=== PATIENT | female | born 1945 | race Caucasian/White ===

== ENCOUNTER 2020-12-06 17:23 | Inpatient (IN) | payer MEDICARE, BC, SELFPAY ==
--- NOTE | ~2020-12-06 | XR_ITS ---
EXAMINATION: XR hip RT min 2V DATE: 12/07/2020 15:53 INDICATION: Total right hip arthroplasty. Postop. TECHNIQUE: 2 views of right hip were obtained. COMPARISON: Right hip radiographs 12/06/2020 FINDINGS: There is a total right hip arthroplasty in near-anatomic alignment. No fracture. IMPRESSION: 1. Total right hip arthroplasty in near-anatomic alignment. Reviewed, dictated and finalized at location B.
--- NOTE | ~2020-12-06 | XR_ITS ---
EXAMINATION: XR knee RT 3V EXAM DATE: 12/06/2020 18:06 INDICATION: Fall, right hip and knee pain. Initial encounter. TECHNIQUE: Three projections of the right knee. There is no prior study for comparison. FINDINGS: No evidence osteochondral defect or joint body in the right knee joint. There are no acut e fractures or dislocations identified. There is no subcutaneous gas. There is small joint effusion . There are no radiopaque foreign bodies. 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 IMPRESSION: Small right knee joint effusion. Mild osteoarthritis. Reviewed, dictated and finalized at location A.
--- NOTE | ~2020-12-06 | US_ITS ---
EXAMINATION: US venous doppler LE EXAM DATE: 12/09/2020 15:57 INDICATION: Postoperative fever. Right hip surgery. TECHNIQUE: Multiple grayscale, color flow and Doppler images of the lower extremity deep venous syste ms bilaterally were obtained and reviewed. There is no prior study for comparison. FINDINGS: Right side: The right common femoral, femoral and profunda veins demonstrate normal color flow, respi ratory variation, augmentation and compressibility. Compressibility, color flow confirmed within the right popliteal, posterior tibial, peroneal, and greater saphenous veins. Left side: The left common femoral, femoral and profunda veins demonstrate normal color flow, respira tory variation, augmentation and compressibility. Compressibility, color flow confirmed within the l eft popliteal, posterior tibial, peroneal, and greater saphenous veins. IMPRESSION: 1. No lower extremity deep venous thrombosis bilaterally. Reviewed, dictated and finalized at location A.
--- NOTE | ~2020-12-06 | XR_ITS ---
XR chest 2V DATE: 12/09/2020 09:05 INDICATION: Postoperative fever TECHNIQUE: AP and lateral views COMPARISON: 12/06/2020 AP chest FINDINGS: Heart size is within normal limits. Aortic arch calcification. No hilar or mediastinal enla rgement. No pulmonary infiltrate or consolidation, pleural effusion or pulmonary vascular congestion or pneumo thorax. Prominent loss of height and anterior wedging of L1 vertebral body IMPRESSION: No active cardiopulmonary disease L1 fracture deformity Reviewed, dictated and finalized at location A.
--- NOTE | ~2020-12-06 | XR_ITS ---
EXAMINATION: XR hip RT 2V w AP pelvis EXAM DATE: 12/06/2020 18:07 INDICATION: Fall, right hip pain. TECHNIQUE: Right hip frontal, crosstable lateral projections for interpretation. Frontal projection p lula. There is no prior study for comparison. FINDINGS: There is acute closed posttraumatic right-sided subcapital femoral neck fracture. There is moderate bilateral hip primary osteoarthritis. Sacrum, sacroiliac joints, sacral arcuate lines are in tact. Pelvic ring appears intact. IMPRESSION: 1. Acute right hip subcapital femoral neck fracture. Reviewed, dictated and finalized at location A.
--- NOTE | ~2020-12-06 | XR_ITS ---
EXAMINATION: XR chest 1V EXAM DATE: 12/06/2020 18:07 INDICATION: Fall, shortness of breath. TECHNIQUE: Portable AP frontal chest x-ray was obtained. There is no prior study for comparison. FINDINGS: Moderate hyperinflation. The lungs are clear. There are no pleural effusions. The cardiom ediastinal silhouette is within normal limits. There is no pneumothorax suspected. Moderate loss of the L1 vertebral body height, likely chronic assuming patient does not have back pain. IMPRESSION: 1. Moderate loss of the L1 vertebral body height, likely chronic assuming patient does not have back pain. 2. No acute cardiopulmonary findings. Reviewed, dictated and finalized at location A. IMPRESSION: 1. Moderate loss of the L1 vertebral body height, likely chronic assuming mayra ent does not have back pain. 2. No acute cardiopulmonary findings.
[2020-12-06 17:25] VITALS: BP 172/66; PULSE 100; RESP 16; TEMP 36.7; O2SAT 98
--- NOTE | 2020-12-06 18:20 | ECG_ITS ---
Measurements Intervals [place] Rate: 102 P: 79 ID: [id number] QRS: 73 QRSD: 84 T: 29 QT: 309 QTc: 403 Interpretive Statements SINUS TACHYCARDIA BASELINE ARTIFACT- II, AVR, AVL BORDERLINE ECG Electronically Signed On 12-06-2020 19:51:07 CDT by Alexi Aldana D.O.
--- NOTE | 2020-12-06 18:43 | ED.LOWEXIN ---
HPI - Extremity Injury (Lower) General Chief Complaint: Extremity Injury, Lower Stated Complaint: FALL, R HIP R KNEE PAIN Time Seen by Provider: 12/06/20 18:12 Source: patient Mode of arrival: wheelchair Limitations: no limitations History of Present Illness HPI Narrative: Patient is a 75 year old female who presents by personal vehicle complaining of right hip pain. Patient reports she was outside watering [place], slipped and fell on concrete, injuring right hip. She reports calling son who helped her to vehicle. She reports pain when right leg is moved. She denies all other complaints at this time. complaint: hip injury Related Data Allergies Allergy/AdvReac Type Severity Reaction Status Date / Time No Known Allergies Allergy Mild Verified 10/22/20 09:18 Review of Systems Review of Systems: Narrative: CONSTITUTIONAL: Denies fever, chills, or sweats. EYES: Denies visual changes, redness, or discharge. ENT: Denies rhinorrhea, congestion, sore throat, or otalgia. CARDIOVASCULAR: Denies chest pain, palpitations, or edema. RESPIRATORY: Denies cough or dyspnea. GASTROINTESTINAL: Denies abdominal pain, nausea, vomiting, or diarrhea. GENITOURINARY: Denies dysuria or hematuria. SKIN: Denies rash or itching. MUSCULOSKELETAL: Reports right hip pain NEUROLOGIC: Denies headache, numbness, dizziness, or weakness. PSYCHIATRIC: Denies anxiety or depression. [facility] Past Medical History Medical History HLD (hyperlipidemia) Surgical History Surgical History Status post D&C Family History Family History Sibling Family history of lung cancer Social History Social History Smoking status: Never smoker Second hand tobacco smoke exposure: No Alcohol intake: never Substance use: never Substance use type: does not use Gender identity (if verbalized by the patient): Female Comments At the time of signature, I have reviewed and agree with nursing past medical, surgical, social, and family history unless otherwise noted. Please see nursing chart for further information. There is no relevant family history pertinent to the presenting complaint. Exam Narrative: Exam Narrative: GENERAL: Well-appearing, well-nourished, and in no acute distress. HEAD: Normocephalic, atraumatic. EYES: EOMI. No redness or drainage. Conjunctiva are normal. ENT: Mucous membranes pink and moist. NECK: AROM. Supple. No lymphadenopathy. CHEST: No respiratory distress. HEART: Regular rate and rhythm. No murmur appreciated. Normal peripheral pulses. EXTREMITIES: Slight shortening of right leg, no rotation. SKIN: Warm, dry, no rash. NEURO: No focal deficits. Alert and oriented x3. Gait steady. PSYCH: Normal affect. No signs of depression or anxiety. Course Consultations Consultation #1: Spoke with Dr. Doyle who asks that patient be NPO at midnight as he will attempt to schedule surgical repair for tomorrow. Vital Signs Vital signs: Vital Signs Temperature 36.7 C 12/06/20 17:25 Pulse Rate 100 12/06/20 17:25 Respiratory Rate 16 12/06/20 17:25 Blood Pressure 172/66 H 12/06/20 17:25 Pulse Oximetry 98 12/06/20 17:25 Temperature 36.6 C 12/06/20 19:25 Pulse Rate 97 12/06/20 19:25 Respiratory Rate 20 12/06/20 19:25 Blood Pressure 185/79 H 12/06/20 19:25 Pulse Oximetry 95 12/06/20 19:25 Reviewed-patient is informed that they may have pre-hypertension or hypertension based on a blood pressure reading. I recommend the patient call the primary care provider listed on their discharge instructions or a physician of their choice this week to arrange follow-up for further evaluation of possible pre-hypertension or hypertension. MDM - Extremity Injury (Lower) MDM Narrative Medical decision syed
[2020-12-06 18:45] VITALS: BP 150/65; PULSE 81; RESP 17; O2SAT 97
[2020-12-06 18:49] LABS: Basophils Absolute Auto 0.1 K/mm3 (0.0-0.1); Basophils Percent Auto 0.6 % (0.2-1.2); Eosinophils Percent Auto 0.3 % (0-4.4); Hematocrit 34.4 % (37.0-47.0); Hemoglobin 11.3 g/dL (12.0-15.0); Immature Granulocyte Absolute 0.08 K/mm3 (0.00-0.031); Immature Granulocyte Percent A 0.9 % (0-0.5); Lymphocytes Absolute Auto 2.05 K/mm3 (0.9-3.2); Lymphocytes Percent Auto 22.7 % (18.3-44.2); Mean Corpuscular HGB Conc 32.8 g/dl (32-36); Mean Corpuscular Hemoglobin 27.4 pg (26-34); Mean Corpuscular Volume 83.5 fl (80-100); Mean Platelet Volume 9.3 fl (7.4-10.4); Monocytes Absolute Auto 0.8 K/mm3 (0.1-0.6); Monocytes Percent Auto 8.6 % (2.6-8.5); Neutrophils Percent Auto 66.9 % (45.5-73.1); Platelet Count Result 355 k/mm3 (150-375); Red Blood Count 4.12 M/mm3 (4.2-5.4); Red Cell Distribution Width 13.5 % (11.5-14.5)
[2020-12-06 18:57] LABS: Prothrombin Time 13.3 Seconds (11.1-14.7)
[2020-12-06 19:00] LABS: Alanine Aminotransferase 16 U/L (4-35); Albumin Level 4.3 g/dL (3.5-5.1); Alkaline Phosphatase 56 U/L (38-126); Anion Gap 6 mmol/L (8-16); Aspartate Amino Transferase 36 U/L (14-36); Bilirubin,Total 0.2 mg/dL (0.2-1.3); Blood Urea Nitrogen 13 mg/dL (7-17); Calcium 9.3 mg/dL (8.4-10.2); Carbon Dioxide 27 mmol/L (22-30); Chloride 96 mmol/L (98-107); Estimated CRCL calculation 43 ml/min; Estimated Glomerular Filt Rate > 60; Glucose 149 mg/dL (65-105); Sodium 129 mmol/L (137-145)
[2020-12-06 19:25] VITALS: BP 185/79; PULSE 97; RESP 20; TEMP 36.6; O2SAT 95
[2020-12-06] MEDS: SODIUM CHLORIDE 0.9% IV 1,000 ML 999 ML IV CONT (19:30)
[2020-12-06 19:53] LABS: Add Urine Microscopic? YES; Appearance Urine Clear (Clear); Bilirubin Urine Negative (Negative); Blood Urine Negative (Negative); Color Urine Yellow (Yellow); Glucose Urine UA Negative (Negative); Ketones Urine 1+ mg/dL (Negative); Leukocyte Esterase Ur Negative LEU/UL (Negative); Mucus Urine Rare /lpf; Nitrate Urine Negative (Negative); Protein Urine Negative (Negative); RBC Urine 0-2 /hpf (0-2); Urobilinogen Urine Negative mg/dL (<2.0); WBC Urine 0-3 /hpf
--- NOTE | 2020-12-06 20:15 | PM.IMHP ---
H&P: HPI History of Present Illness Date/Time: 12/06/20 20:15 Chief Complaint: Right hip and knee pain after fall. Narrative: This is a pleasant 75-year-old female with type 2 diabetes mellitus, hypertension, and hyperlipidemia who presented to the emergency department earlier today via private vehicle from home for evaluation of right hip pain and knee pain after fall. Not long prior to arrival she was outside watering her plants and when she came inside she turned the corner quickly and thinks she tripped on the threshold, causing her to fall down onto her right side. She had immediate pain in her right hip in somewhat in her right knee and was unable to get herself up. Her son and [id number] were able to help her to her feet and today carried her to the car and brought her to the hospital where she was found to have a right hip fracture. She has a fairly constant ache in the right hip, worse with movement. She also reports mild aching in her right knee though has full range of motion without a whole lot of pain at that site. She denies head trauma and loss of consciousness in the fall. No paresthesias, skin color, or temperature changes distal to the fracture. Review of Systems Review of Systems: Narrative: Twelve systems were reviewed with pertinent positives and negatives as per HPI. No fever, chills, or sweats. No recent cold or flu symptoms. She is fully vaccinated for COVID-19. No cardiac or pulmonary disease. She denies exertional chest pain shortness of breath. She believes her diabetes is fairly well controlled however admits that over the last 6 months or so her glucose has been running a bit higher, noting that it was about 140 fasting this morning. Most recent hemoglobin A1c was 7.4%. No blurry vision, polydipsia, or polyuria. No history of venous thromboembolism. No syncope or near syncope. She denies back pain. Except as documented, all other systems were reviewed and are negative. [facility] Past Medical History Medical History (Updated 12/06/20 @ 23:22 by Lulu Prado PA-C) Essential hypertension History of melanoma Hyperlipidemia Type 2 diabetes mellitus without complication, without long-term current use of insulin Surgical History Surgical History (Updated 12/06/20 @ 23:18 by Lulu Prado PA-C) History of dilation and curettage History of melanoma excision Excised from the back. Family History Family History (Updated 12/06/20 @ 23:19 by Lulu Prado PA-C) Sibling Family history of lung cancer Sibling Takotsubo cardiomyopathy Son Hypertension Daughter Diabetes mellitus Social History Social History (Updated 12/06/20 @ 23:20 by Lulu Prado PA-C) Social History: Surrogate decision maker: Maldonado Villalba, frank. Code status: Full code. Smoking status: Never smoker Second hand tobacco smoke exposure: No Alcohol intake: never Substance use: never Substance use type: does not use Additional living arrangements comments: The patient lives in her own home in [place]. Her son and [id number] live with her as well as there to cats. Additional occupation/education comments: Retired. Gender identity (if verbalized by the patient): Female Spiritual care concerns: No Meds Home Medications and Allergies Home Medications Medication Instructions Recorded Confirmed Type sitagliptin 100 mg tablet 100 mg PO DAILY #90 tablet 07/31/20 12/06/20 Rx lisinopril 2.5 mg PO DAILY 12/06/20 12/06/20 History multivit with min-folic acid 1 tablet PO DAILY 12/06/20 12/06/20 History [Adult One Daily Multivitamin] Allergies Allergy/AdvReac Type Severity Reaction Status Date / Time adhesive tape Allergy Rash Verified 12/06/20 22:09 Vital Signs Vital Signs - 24 hr 12/06/20 17:25 12/06/20 18:45 12/06/20 19:25 Temperature 98.0 F 97.8 F Pulse Rate 100 81 97 Respiratory Rate 16 17 20 Blood Pressure 172/66 H 150/65 H 185/79 H Pulse Oxi
[2020-12-06 20:20] VITALS: BP 165/72; PULSE 93; RESP 24; O2SAT 97
--- NOTE | 2020-12-06 21:22 | ADMGEN ---
This patient, Rhonda Villalba, was admitted to Medical Room 241-. Patient/family oriented to hospital policies and general routines including ID bracelet, bed and alarms, visiting hours, pain management, procedures, bathroom and other care routines, personal items, smoking policy, room service/diet, and visiting hours. Information on how to activate the Rapid Response Team has been discussed. Patient/Family are encouraged to report perceived risks to care and to ask questions if they do not understand what they are told or what they should do.
[2020-12-06 21:37] VITALS: BP 152/72; PULSE 103; RESP 18; TEMP 36.2; O2SAT 97; BMI 22.8
[2020-12-06] MEDS: HYDROcodone/acetaminophen (*CRX) 5-325 MG TABLET 1 TAB PO (22:09)
[2020-12-06 23:55] VITALS: O2SAT 97
[2020-12-07] VITALS (14 sets, daily range): BP systolic 120–149; BP diastolic 50–63; PULSE 63–88; RESP 12–20; TEMP 36.6–37.6; O2SAT 91–100
[2020-12-07 00:09] LABS: Hemoglobin A1C 7.7 % (<5.7)
[2020-12-07 00:39] LABS: Thyroid Stimulating Hormone Reflex 0.323 uIU/mL (0.465-4.68)
[2020-12-07 00:47] LABS: Creatinine Urine 15.2 mg/dL
[2020-12-07 00:58] LABS: Sodium Urine Random 97 meq/L
[2020-12-07] MEDS: SODIUM CHLORIDE 0.9% IV 1,000 ML 100 ML IV CONT (01:13)
[2020-12-07 01:46] LABS: Free T4 Free Thyroxine Reflex 1.38 ng/dL (0.78-2.19)
[2020-12-07 02:47] LABS: Total Triiodothyronine (T3) 1.15 NG/ML (0.97-1.69)
[2020-12-07 06:12] LABS: Hematocrit 32.3 % (37.0-47.0); Hemoglobin 10.8 g/dL (12.0-15.0); Mean Corpuscular HGB Conc 33.4 g/dl (32-36); Mean Corpuscular Hemoglobin 28.2 pg (26-34); Mean Corpuscular Volume 84.3 fl (80-100); Platelet Count Result 333 k/mm3 (150-375); Red Blood Count 3.83 M/mm3 (4.2-5.4); Red Cell Distribution Width 13.6 % (11.5-14.5); White Blood Count 8.9 K/mm3 (4.5-10.0)
[2020-12-07 06:19] LABS: Anion Gap 1 mmol/L (8-16); Blood Urea Nitrogen 10 mg/dL (7-17); Calcium 8.5 mg/dL (8.4-10.2); Carbon Dioxide 28 mmol/L (22-30); Chloride 101 mmol/L (98-107); Estimated CRCL calculation 49 ml/min; Estimated Glomerular Filt Rate > 60; Glucose 132 mg/dL (65-105); Magnesium 1.8 mg/dL (1.6-2.3); Potassium 3.9 mmol/L (3.4-5.0); Sodium 130 mmol/L (137-145)
[2020-12-07] MEDS: HYDROcodone/acetaminophen (*CRX) 5-325 MG TABLET 1 TAB PO (06:40)
--- NOTE | 2020-12-07 09:41 | PM.CNOR ---
Assessment and Plan Assessment and plan (1) Closed subcapital fracture of right femur: Code(s): S72.011A - Unspecified intracapsular fracture of right femur, initial encounter for closed fracture Status: Acute Assessment and Plan: Active female with displaced femoral neck fracture. Will benefit from total hip arthroplasty. We discussed the risks, benefits, and alternatives to surgery. History of Present Illness HPI Consult date: 12/07/20 Chief complaint: Right Hip Fracture Narrative: Patient complains of acute hip pain. Fell from standing height. Admitted through the emergency room for definitive management. No previous hip pain. Comfortable at rest. No numbness, tingling, or other associated symptoms. Very active community ambulator. Review of Systems Review of Systems: Narrative: Denies loss of consciousness. All systems reviewed & are unremarkable except as noted in HPI and below PMFSH Past Medical History Medical History Essential hypertension History of melanoma Hyperlipidemia Type 2 diabetes mellitus without complication, without long-term current use of insulin Surgical History Surgical History History of dilation and curettage History of melanoma excision Excised from the back. Family History Family History Sibling Family history of lung cancer Sibling Takotsubo cardiomyopathy Son Hypertension Daughter Diabetes mellitus Social History Social History Social History: Surrogate decision maker: Maldonado Vilallba, son. Code status: Full code. Smoking status: Never smoker Second hand tobacco smoke exposure: No Alcohol intake: never Substance use: never Substance use type: does not use Additional living arrangements comments: The patient lives in her own home in [place] Her son and [id number] live with her as well as there to cats. Additional occupation/education comments: Retired. Gender identity (if verbalized by the patient): Female Spiritual care concerns: No Meds Home Medications and Allergies Home Medications Medication Instructions Recorded Confirmed Type sitagliptin 100 mg tablet 100 mg PO DAILY #90 tablet 07/31/20 12/06/20 Rx lisinopril 2.5 mg PO DAILY 12/06/20 12/06/20 History multivit with min-folic acid 1 tablet PO DAILY 12/06/20 12/06/20 History [Adult One Daily Multivitamin] Allergies Allergy/AdvReac Type Severity Reaction Status Date / Time adhesive tape Allergy Rash Verified 12/06/20 22:09 Vital Signs Vital Signs - 24 hr 12/06/20 17:25 12/06/20 18:45 12/06/20 19:25 Temperature 36.7 C 36.6 C Pulse Rate 100 81 97 Respiratory Rate 16 17 20 Blood Pressure 172/66 H 150/65 H 185/79 H Pulse Oximetry 98 97 95 12/06/20 20:20 12/06/20 21:37 12/06/20 23:55 Temperature 36.2 C L Pulse Rate 93 103 H Respiratory Rate 24 H 18 Blood Pressure 165/72 H 152/72 H Pulse Oximetry 97 97 97 12/07/20 06:00 Temperature 36.8 C Pulse Rate 81 Respiratory Rate 16 Blood Pressure 142/54 H Pulse Oximetry 98 Exam Narrative: Exam Narrative: Lower extremity shortened and externally rotated. Const: General: no acute distress Eyes: General: appearance normal, both eyes and all related structures Resp: Effort & Inspection: normal respiratory effort GI: GI Palp: Yes Soft to palpation and No Guarding due to palpation present (GI) Urinary Catheter: Urinary Catheter: patent and draining and urine clear Skin: General skin exam: no rashes or lesions noted Neuro: Speech: normal speech Other: Wiggles toes well. Capillary refill brisk. Distal light touch sensation intact. Dorsalis pedis pulse palpable. Extrem: Other: No edema. Psych: Mental Status: mental status grossly nor
--- NOTE | 2020-12-07 09:50 | WPDHPUPDATE1 ---
History and Physical Update Update Date/Time: 12/07/20 09:50 History and Physical has been reviewed, including an updated exam of the patient. There are NO changes in the patient's condition. Risks, benefits, and alternatives have been discussed and questions answered. Patient agrees to proceed with procedure.
[2020-12-07 11:39] LABS: Glucose Point of Care 147 (65-105)
--- NOTE | 2020-12-07 11:40 | PC.NURSE ---
pt to surgery via bed, confirmed we have correct phone number for son
[2020-12-07 11:41] LABS: Glucose Point of Care 122 (65-105)
[2020-12-07] MEDS: LACTATED RINGERS 1,000 ML 30 ML IV CONT ×2 (12:10→15:35)
[2020-12-07] MEDS: TRANEXAMIC ACID 1,000MG/ISO100 1,000 MG/100 ML BAG 200 MG IVPB (12:22)
--- NOTE | 2020-12-07 12:34 | WPDANESEPPF ---
Anes - Initial Pre Proc Eval Procedure: Operation Date: 12/07/20 13:00 Proposed Procedures p Right Total Hip Arthroplasty - Kael Doyle MD Date/Time: 12/07/20 12:34 Surgeon: Nidhi Manuel PA-C Pre Op Diagnosis: Right Hip Fracture Patient Data Age: 75 Gender: F Height: 1.52 m Weight: 53.1 kg Last Vital Signs Temp 37.4 C 12/07/20 12:14 Pulse 88 12/07/20 12:14 Resp 20 12/07/20 12:14 BP 137/63 12/07/20 12:14 Pulse Ox 96 12/07/20 12:14 Allergies Allergy/AdvReac Type Severity Reaction Status Date / Time adhesive tape Allergy Rash Verified 12/06/20 22:09 Home Medications Medication Instructions Recorded Confirmed Type sitagliptin 100 mg tablet 100 mg PO DAILY #90 tablet 07/31/20 12/06/20 Rx lisinopril 2.5 mg PO DAILY 12/06/20 12/06/20 History multivit with min-folic acid 1 tablet PO DAILY 12/06/20 12/06/20 History [Adult One Daily Multivitamin] Laboratory Tests 12/06/20 12/06/20 12/06/20 18:43 18:43 18:43 WBC 9.0 K/mm3 K/mm3 (4.5-10.0) RBC 4.12 M/mm3 L M/mm3 (4.2-5.4) Hgb 11.3 g/dL L g/dL (12.0-15.0) Hct 34.4 % L % (37.0-47.0) MCV 83.5 fl fl (80-100) MCH 27.4 pg pg (26-34) MCHC 32.8 g/dl g/dl (32-36) RDW 13.5 % % (11.5-14.5) Plt Count 355 k/mm3 k/mm3 (150-375) MPV 9.3 fl fl (7.4-10.4) Immature Gran % (Auto) 0.9 % H % (0-0.5) Neut % (Auto) 66.9 % % (45.5-73.1) Lymph % (Auto) 22.7 % % (18.3-44.2) [place] % (Auto) 8.6 % H % (2.6-8.5) Eos % (Auto) 0.3 % % (0-4.4) Baso % (Auto) 0.6 % % (0.2-1.2) Lymph # (Auto) 2.05 K/mm3 K/mm3 (0.9-3.2) [place] # (Auto) 0.8 K/mm3 H K/mm3 (0.1-0.6) Eos # (Auto) 0.0 K/mm3 K/mm3 (0-0.3) Baso # (Auto) 0.1 K/mm3 K/mm3 (0.0-0.1) Abs Immat Gran (auto) 0.08 K/mm3 H K/mm3 (0.00-0.031) Absolute Neuts (auto) 6.0 K/mm3 K/mm3 (1.3-6.7) Absolute Nucleated RBC 0.0 K/mm3 K/mm3 (0.0-0.012) Nucleated RBC % 0.0 % % (0.0-0.2) PT INR APTT Cancelled Sodium 129 mmol/L L mmol/L (137-145) Potassium 4.0 mmol/L mmol/L (3.4-5.0) Chloride 96 mmol/L L mmol/L (98-107) Carbon Dioxide 27 mmol/L mmol/L (22-30) Anion Gap 6 mmol/L L mmol/L (8-16) BUN 13 mg/dL mg/dL (7-17) Creatinine 0.70 mg/dL mg/dL (0.7-1.0) Estim Creat Clear Calc 43 ml/min ml/min Estimated GFR > 60 (59 - ) Glucose 149 mg/dL H mg/dL (65-105) POC Capillary Glucose Hemoglobin A1c Serum Osmolality Calcium 9.3 mg/dL mg/dL (8.4-10.2) Magnesium Total Bilirubin 0.2 mg/dL mg/dL (0.2-1.3) AST 36 U/L U/L (14-36) ALT 16 U/L U/L (4-35) Alkaline Phosphatase 56 U/L U/L (38-126) Total Protein 7.0 g/dL g/dL (6.3-8.2) Albumin 4.3 g/dL g/dL (3.5-5.1) TSH (Reflex) Free T4 Total T3 Urine Color Urine Appearance Urine pH Ur Specific [place] Urine Protein Urine Glucose (UA) Urine Ketones Ur Blood (Man) Urine Nitrate Urine Bilirubin Urine Urobilinogen Leukocyte Esterase Rfl Urine RBC Urine WBC Urine Mucus Urine Osmolality Ur Random Sodium Urine Creatinine Blood Type Antibody Screen 12/06/20 12/06/20 12/06/20 18:43 18:43 18:43 WBC RBC Hgb Hct MCV MCH MCHC RDW Plt Count MP
[2020-12-07] MEDS: ceFAZolin 2 GM/D5W 50 ML 2 GM/50 ML BAG IVPB (13:21)
--- NOTE | 2020-12-07 13:58 | PM.IMPN ---
Progress Note: A&P Assessment and Plan (1) Closed subcapital fracture of right femur: Code(s): S72.011A - Unspecified intracapsular fracture of right femur, initial encounter for closed fracture Status: Acute Assessment and Plan: Secondary to mechanical fall. Hip x-ray showed subcapital femoral neck fracture Surgical repair today with Dr. Doyle. Appreciate orthopedic surgery consultation. Supportive care Analgesics available as needed for pain Weight bearing and DVT prophylaxis per orthopedic surgery (2) Hyponatremia: Code(s): E87.1 - Hypo-osmolality and hyponatremia Status: Acute Assessment and Plan: Very mild. Sodium 130 today. Review of prior labs suggests chronic hyponatremia. Monitor BMP (3) Type 2 diabetes mellitus without complication, without long-term current use of insulin: Code(s): E11.9 - Type 2 diabetes mellitus without complications Status: Acute Assessment and Plan: A1c is 7.7. Blood sugars are well controlled. Accu-Cheks, sliding scale insulin, hypoglycemic protocol Monitor glucose trends (4) Essential hypertension: Code(s): I10 - Essential (primary) hypertension Status: Acute Assessment and Plan: Blood pressure reviewed and is elevated above target, likely secondary to pain. Seems to be improving. Last BP 137/63. Lisinopril on hold as she is NPO. Resume tomorrow. (5) Abnormal TSH: Code(s): R79.89 - Other specified abnormal findings of blood chemistry Status: Acute Assessment and Plan: TSH is low with normal T4 and T3. Recommend repeat reflex TSH in 4-6 weeks as an outpatient. Follow-up with PCP Subjective Date/time seen: 12/07/20 13:58 Interval history: Date of service: 12/07/2020 Rhonda Villalba is a 75-year-old female with a history of hypertension, hyperlipidemia, and type 2 diabetes mellitus who is seen in follow-up for right hip fracture. She is seen in postop recovery after undergoing surgical hip repair. She is very drowsy and unable to contribute to history. Review of Systems Review of Systems: ROS unobtainable: Yes unobtainable due to medical condition Exam Narrative: Exam Narrative: Ms. Villalba is a well-nourished 75-year-old female who is lying supine on stretcher. She is in NARD. Neuro: Drowsy, does not respond to questions, she is able to follow simple commands no focal neuro deficits noted HEENMT: normocephalic, atraumatic, EOMI, sclerae anicteric Respiratory: clear to auscultation anteriorly, nonlabored breathing Cardio: regular rate, regular rhythm with S1-S2 Extremities: Right hip is covered with bandage and ice pack. Bilateral lower extremities with no edema, erythema, cyanosis, clubbing, or tenderness to palpation, DP pulses 2+ bilaterally Skin: no rashes or lesions, warm and dry Objective Data Vital Signs Vital Signs: Vital Signs - 24 hr 12/06/20 17:25 12/06/20 18:45 12/06/20 19:25 Temperature 98.0 F 97.8 F Pulse Rate 100 81 97 Respiratory Rate 16 17 20 Blood Pressure 172/66 H 150/65 H 185/79 H Pulse Oximetry 98 97 95 12/06/20 20:20 12/06/20 21:37 12/06/20 23:55 Temperature 97.1 F L Pulse Rate 93 103 H Respiratory Rate 24 H 18 Blood Pressure 165/72 H 152/72 H Pulse Oximetry 97 97 97 12/07/20 06:00 12/07/20 12:14 Temperature 98.2 F 99.4 F Pulse Rate 81 88 Respiratory Rate 16 20 Blood Pressure 142/54 H 137/63 Pulse Oximetry 98 96 Intake/Output Intake/Output: Intake & Output 12/04/20 12/05/20 12/06/20 12/07/20 23:59 23:59 23:59 23:59 Intake Total 1000 200 Output Total 1250 Balance 1000 -1050 Meds/Results Medications: Active Medications Generic Name Dose Route Start Last Admin Trade Name Freq PRN Reason Stop Dose Admin Hydrocodone Bitart/Acetaminophen 1 tab 12/06/20 19:20 12/07/20 06:40 Hydrocodone/Acetaminophen (*Crx) 5-325 Mg Tablet PO 1 tab Q4H PRN Administ
[2020-12-07] MEDS: fentaNYL CITRATE INJ (*CRX) 100 MCG/2 ML VIAL 25 MCG IV PUSH ×2 (15:48→16:06)
--- NOTE | 2020-12-07 16:02 | PM.PROC ---
Procedure Note - Detailed Date of procedure: 12/07/20 Pre-op diagnosis: Right Hip Fracture Post-op diagnosis: same Procedure performed: Total hip arthroplasty, right hip. Implants: The Accolade II hip stem, 127 degree size 4 , was utilized with excellent press-fit. The 46 mm ADM acetabular component was impacted with excellent press-fit stability. The +0 , 28 mm Biolox ceramic femoral head was utilized. [facility] Surgeon: Kael Doyle MD Sheriff: Rosmery Griffin PA-C Estimated blood loss (mL): 300 Drains: No Complications: None Condition: stable Disposition: PACU Findings: Physician surgical assistant certified, Rosmery Griffin PA-C, required for surgery; including patient positioning, draping, tissue retraction, maintaining instrument position, dislocation and reduction of the hip joint. Wound closure, and dressing placement. OPERATIVE DETAILS: The patient was given preoperative antibiotics. A general anesthetic was administered. The patient was carefully placed in the lateral decubitus position on the PEG board. The shoulders and hips were carefully positioned for component and leg length positioning reference. The hip was prepped and draped in the usual sterile fashion. A longitudinal incision was created over the posterior aspect of the greater trochanter. Careful dissection was brought down through the deep fascia with electrocautery. A minimally invasive optimized posterior approach to the hip was performed. The short external rotators and capsule were taken down in an L-shaped capsulotomy. The tissue was tagged for later repair using number 2 high strength suture. The femoral neck was measured and taken in situ. The femoral head was removed. The acetabulum was carefully exposed. The inferior capsule was released. The labrum was resected. The acetabulum was sequentially reamed to one over the intended cup size. The cup was impacted into position with excellent press-fit. Typical anatomic landmarks, including the bony contact points as well as the inferior transverse acetabular ligament were used to confirm cup positioning with preoperative templating. Attention was turned to the femur, which was carefully exposed. The hip was reamed and then broached sequentially. Excellent press-fit was obtained with the broach. The hip was trialed. Measurements were utilized, including the lesser trochanter as well as the center of the femoral head and the tip of the trochanter, and excellent assessment of the offset and leg lengths were confirmed. The real component was impacted into position. Trialing confirmed appropriate leg length and offset with soft tissue balancing as well apparent feel of the leg, both at the knee and the heel. Soft tissues were assessed using the the iliotibial band. Reduction of the posterior capsule and external rotators were also used as a secondary assessment. The hip was copiously irrigated with pulsatile lavage antibiotic solution periodically throughout the procedure. The real components were then assembled and reduced. The hip was stable throughout typical maneuvers, including extension, external rotation to 70 degrees, the position of sleep as well as flexion to 90 degrees with internal rotation past 45 degrees. The shake test confirmed stability without impingement. Osteophytes were removed as necessary. The short external rotators and capsule were repaired back to the posterior trochanter through drill holes. The deep fascia was repaired with running number 2 Quill suture, followed by 0 Stratafix suture and 2-0 Stratafix suture in the dermis. Steri-Strips were placed on the skin, followed by a sterile silver occlusive dressing. There were no complications. Meticulous hemostasis was maintained with the AquaMantys device. The patient was brought to the recovery room in stable condition. There were no complications.
[2020-12-07 16:12] LABS: Glucose Point of Care 180 (65-105)
--- NOTE | 2020-12-07 17:01 | PC.NURSE ---
pt returned from surgery, doing well, reviewed post op orders
[2020-12-07] MEDS: lisinopriL 2.5 MG TABLET PO (19:15)
[2020-12-07] MEDS: THERAPEUTIC MULTIVITAMINS/MINERALS TAB (*BKC) 1 TABLET PO (19:15)
[2020-12-07 21:51] LABS: Glucose Point of Care 209 (65-105)
[2020-12-08] VITALS (8 sets, daily range): BP systolic 110–129; BP diastolic 46–66; PULSE 86–102; RESP 14–18; TEMP 36.7–38.1; O2SAT 94–99
[2020-12-08 05:52] LABS: Basophils Percent Auto 0.2 % (0.2-1.2); Hematocrit 27.1 % (37.0-47.0); Hemoglobin 9.3 g/dL (12.0-15.0); Immature Granulocyte Absolute 0.14 K/mm3 (0.00-0.031); Immature Granulocyte Percent A 0.8 % (0-0.5); Lymphocytes Absolute Auto 1.78 K/mm3 (0.9-3.2); Lymphocytes Percent Auto 9.6 % (18.3-44.2); Mean Corpuscular HGB Conc 34.3 g/dl (32-36); Mean Corpuscular Hemoglobin 28.1 pg (26-34); Mean Corpuscular Volume 81.9 fl (80-100); Mean Platelet Volume 9.8 fl (7.4-10.4); Monocytes Absolute Auto 1.7 K/mm3 (0.1-0.6); Monocytes Percent Auto 8.9 % (2.6-8.5); Neutrophils Percent Auto 80.5 % (45.5-73.1); Platelet Count Result 286 k/mm3 (150-375); Red Blood Count 3.31 M/mm3 (4.2-5.4); Red Cell Distribution Width 13.7 % (11.5-14.5); White Blood Count 18.6 K/mm3 (4.5-10.0)
[2020-12-08 06:13] LABS: Anion Gap 5 mmol/L (8-16); Blood Urea Nitrogen 12 mg/dL (7-17); Calcium 8.6 mg/dL (8.4-10.2); Carbon Dioxide 24 mmol/L (22-30); Chloride 96 mmol/L (98-107); Estimated CRCL calculation 43 ml/min; Estimated Glomerular Filt Rate > 60; Glucose 139 mg/dL (65-105); Potassium 4.2 mmol/L (3.4-5.0); Sodium 125 mmol/L (137-145)
[2020-12-08 07:42] LABS: Glucose Point of Care 135 (65-105)
[2020-12-08 10:45] LABS: Glucose Point of Care 190 (65-105)
[2020-12-08] MEDS: THERAPEUTIC MULTIVITAMINS/MINERALS TAB (*BKC) 1 TABLET PO (10:48)
[2020-12-08] MEDS: lisinopriL 2.5 MG TABLET PO (10:49)
[2020-12-08] MEDS: DOCUSATE SODIUM 100 MG CAPSULE PO ×2 (10:49→18:03)
--- NOTE | 2020-12-08 10:55 | PM.IMPN ---
Progress Note: A&P Assessment and Plan (1) Closed subcapital fracture of right femur: Code(s): S72.011A - Unspecified intracapsular fracture of right femur, initial encounter for closed fracture Status: Acute Assessment and Plan: Secondary to mechanical fall. Hip x-ray showed subcapital femoral neck fracture. She is status post right total hip arthroplasty. She tolerated the procedure well. Surgical repair today with Dr. Doyle. Appreciate orthopedic surgery consultation. Supportive care Analgesics available as needed for pain Weight bearing and DVT prophylaxis per orthopedic surgery PT/OT eval appreciated Leukocytosis noted postoperatively likely reactive, will monitor CBC (2) Hyponatremia: Code(s): E87.1 - Hypo-osmolality and hyponatremia Status: Acute Assessment and Plan: Review of prior labs suggests chronic hyponatremia. Sodium is lower at 125 today. She is euvolemic. Suspect SIADH Repeat sodium this afternoon to establish trend Monitor BMP (3) Type 2 diabetes mellitus without complication, without long-term current use of insulin: Code(s): E11.9 - Type 2 diabetes mellitus without complications Status: Acute Assessment and Plan: A1c is 7.7. Blood sugars are reasonable. Accu-Cheks, sliding scale insulin, hypoglycemic protocol Continue sitagliptin Monitor glucose trends (4) Essential hypertension: Code(s): I10 - Essential (primary) hypertension Status: Acute Assessment and Plan: Blood pressure reviewed and is well controlled. Last BP 120/48. Continue low-dose lisinopril (5) Abnormal TSH: Code(s): R79.89 - Other specified abnormal findings of blood chemistry Status: Acute Assessment and Plan: TSH is low with normal T4 and T3. Recommend repeat reflex TSH in 4-6 weeks as an outpatient. Follow-up with PCP Subjective Date/time seen: 12/08/20 10:55 Interval history: Date of service: 12/08/2020 Rhonda Villalba is a 75-year-old female with a history of hypertension, hyperlipidemia, and type 2 diabetes mellitus who is seen in follow-up for right hip fracture. She is s/p surgical repair on 12/07/2020. She tolerated the procedure well and her pain is well controlled at this time. She reports discomfort that she rates as 4/10. She got up and walked around with therapy today and tolerated this well. She had a bowel movement this morning. Her Banerjee was removed and she is urinating without difficulty. She denies shortness breath, cough, or chest pain. No nausea, vomiting, fever, or chills. Tolerating her diet well. Denies muscle aches or cramps. Review of Systems Review of Systems: All systems reviewed & are unremarkable except as noted in HPI and below Exam Narrative: Exam Narrative: Ms. Villalba is a well-nourished 75-year-old female who is lying supine on stretcher. She is in NARD. Neuro: Awake, alert and oriented x4. Speech clear. No focal neuro deficits noted. HEENMT: normocephalic, atraumatic, EOMI, sclerae anicteric, moist oral mucosa Neck: Supple, no lymphadenopathy Respiratory: clear to auscultation bilaterally, nonlabored breathing Cardio: regular rate, regular rhythm with S1-S2 Abdomen: Nondistended, normoactive bowel sounds, soft, nontender to palpation Extremities: Right hip is covered with ice pack and dressing is c/d/i. Nontender to palpation. Bilateral lower extremities with no edema, erythema, cyanosis, clubbing, or tenderness to palpation, DP pulses 2+ bilaterally Skin: no rashes or lesions, warm and dry Psych: Pleasant, appropriate mood and affect, judgment and insight intact Objective Data Vital Signs Vital Signs: Vital Signs - 24 hr 12/07/20 12:14 12/07/20 15:35 12/07/20 15:50 Temperature 99.4 F 99.3 F Pulse Rate 88 86 67 Respiratory Rate 20 16 16 Blood Pressure 137/63 146/56 H 133/53 L Pulse Oximetry 96 99 100 12/07/20 16:05 11/24
--- NOTE | 2020-12-08 10:55 | WPDANESPN ---
Anes - Prog Note Post-Op Date/Time: 12/08/20 10:55 Cardiovascular status: normal Respiratory status: normal Airway patency: baseline Mental status: baseline Post-Op hydration status: normal Vital Signs: Last Vital Signs Temp 37.2 C 12/08/20 10:00 Pulse 88 12/08/20 10:00 Resp 14 12/08/20 10:00 BP 110/46 L 12/08/20 10:00 Pulse Ox 99 12/08/20 10:00 Pain Score (VAS): 2/10 I/O: Intake & Output 12/07/20 12/08/20 12/08/20 23:59 07:59 15:59 Intake Total 490 600 240 Output Total 90 325 Balance 400 275 240 Laboratory Tests 12/08/20 05:14 12/08/20 05:14 12/07/20 12/07/20 12/07/20 08:02 11:34 16:00 WBC RBC Hgb Hct MCV MCH MCHC RDW Plt Count MPV Immature Gran % (Auto) Neut % (Auto) Lymph % (Auto) [place] % (Auto) Eos % (Auto) Baso % (Auto) Lymph # (Auto) [place] # (Auto) Eos # (Auto) Baso # (Auto) Abs Immat Gran (auto) Absolute Neuts (auto) Absolute Nucleated RBC Nucleated RBC % Sodium Potassium Chloride Carbon Dioxide Anion Gap BUN Creatinine Estim Creat Clear Calc Estimated GFR Glucose POC Capillary Glucose 147 H 122 H 180 H Calcium 12/07/20 12/08/20 12/08/20 21:25 05:14 05:14 WBC 18.6 H RBC 3.31 L Hgb 9.3 L Hct 27.1 L MCV 81.9 MCH 28.1 MCHC 34.3 RDW 13.7 Plt Count 286 MPV 9.8 Immature Gran % (Auto) 0.8 H Neut % (Auto) 80.5 H Lymph % (Auto) 9.6 L [place] % (Auto) 8.9 H Eos % (Auto) 0.0 Baso % (Auto) 0.2 Lymph # (Auto) 1.78 [place] # (Auto) 1.7 H Eos # (Auto) 0.0 Baso # (Auto) 0.0 Abs Immat Gran (auto) 0.14 H Absolute Neuts (auto) 15.0 H Absolute Nucleated RBC 0.0 Nucleated RBC % 0.0 Sodium 125 L Potassium 4.2 Chloride 96 L Carbon Dioxide 24 Anion Gap 5 L BUN 12 Creatinine 0.70 Estim Creat Clear Calc 43 Estimated GFR > 60 Glucose 139 H POC Capillary Glucose 209 H Calcium 8.6 12/08/20 12/08/20 07:20 10:42 WBC RBC Hgb Hct MCV MCH MCHC RDW Plt Count MPV Immature Gran % (Auto) Neut % (Auto) Lymph % (Auto) [place] % (Auto) Eos % (Auto) Baso % (Auto) Lymph # (Auto) [place] # (Auto) Eos # (Auto) Baso # (Auto) Abs Immat Gran (auto) Absolute Neuts (auto) Absolute Nucleated RBC Nucleated RBC % Sodium Potassium Chloride Carbon Dioxide Anion Gap BUN Creatinine Estim Creat Clear Calc Estimated GFR Glucose POC Capillary Glucose 135 H 190 H Calcium Post-procedural complaints: none Patient Feedback: Patient satisfied with anesthetic care.
--- NOTE | 2020-12-08 11:44 | PM.PNORT ---
Progress Note: A&P Assessment and Plan (1) Closed subcapital fracture of right femur: Code(s): S72.011A - Unspecified intracapsular fracture of right femur, initial encounter for closed fracture Status: Acute (2) Status post total hip replacement, right: Code(s): Z96.641 - Presence of right artificial hip joint Status: Acute Assessment and Plan: Doing well on postoperative day 1. May weight bear as tolerated. She wishes to go home. This may be reasonable. She has adequate arrangements at home and assistance. She is in good physical condition. We will see how she does with therapy. Consider home discharge tomorrow. Subjective Subjective Date/Time Seen: 12/08/20 11:44 Interval history: status post Total hip arthroplasty for femoral neck fracture. doing well postoperative day 1. Pain well controlled Mobilizing well with therapy Exam Narrative: Exam Narrative: Wound healing well without drainage No hematoma, no deformity No warmth or erythema Calves nontender, neurovascular status intact, wiggles toes Objective Data Vital Signs Vital Signs: Vital Signs - 24 hr 12/07/20 12:14 12/07/20 15:35 12/07/20 15:50 Temperature 37.4 C 37.4 C Pulse Rate 88 86 67 Respiratory Rate 20 16 16 Blood Pressure 137/63 146/56 H 133/53 L Pulse Oximetry 96 99 100 12/07/20 16:05 12/07/20 16:20 12/07/20 16:35 Temperature 37.6 C Pulse Rate 65 63 70 Respiratory Rate 14 14 12 Blood Pressure 133/60 122/50 L 122/51 L Pulse Oximetry 100 100 92 12/07/20 16:44 12/07/20 17:00 12/07/20 17:15 Temperature 36.8 C 36.9 C Pulse Rate 71 78 85 Respiratory Rate 14 18 18 Blood Pressure 122/51 L 138/57 L 140/56 L Pulse Oximetry 91 95 95 12/07/20 17:45 12/07/20 18:45 12/07/20 20:05 Temperature 36.8 C 36.8 C 36.6 C Pulse Rate 82 82 78 Respiratory Rate 18 18 16 Blood Pressure 149/51 H 126/52 L 120/55 L Pulse Oximetry 93 95 96 12/07/20 22:23 12/08/20 00:23 12/08/20 05:21 Temperature 36.7 C 37.5 C Pulse Rate 86 99 Respiratory Rate 16 16 Blood Pressure 129/51 L 120/48 L Pulse Oximetry 95 99 94 12/08/20 10:00 Temperature 37.2 C Pulse Rate 88 Respiratory Rate 14 Blood Pressure 110/46 L Pulse Oximetry 99 Intake/Output Intake/Output: Intake & Output 12/05/20 12/06/20 12/07/20 12/08/20 23:59 23:59 23:59 23:59 Intake Total 1000 740 840 Output Total 1790 325 Balance 1000 -1050 515 Meds/Results Medications: Active Medications Generic Name Dose Route Start Last Admin Trade Name Freq PRN Reason Stop Dose Admin Hydrocodone Bitart/Acetaminophen 1 tab 12/06/20 19:20 12/07/20 06:40 Hydrocodone/Acetaminophen (*Crx) 5-325 Mg Tablet PO 1 tab Q4H PRN Administration Pain Rated 4-6 Aspirin 81 mg 12/08/20 17:00 Aspirin 81 Mg Enteric Tablet PO BID MAMADOU Dextrose 12.5 gm 12/06/20 23:25 Dextrose 50% 25 Gm/50 Ml Syringe IV PUSH PRN PRN Hypoglycemia Protocol Docusate Sodium 100 mg 12/07/20 17:00 12/08/20 10:49 Docusate Sodium 100 Mg Capsule PO 100 mg BID MAMADOU Administration Glucagon 1 mg 12/06/20 23:25 Glucagon For Inj 1 Mg Vial IM PRN PRN Hypoglycemia Protocol Glucose 15 gm 12/06/20 23:25 Glucose Oral Gel 15 Gm Of Glucse In 37.5 Gm Tube PO PRN PRN Hypoglycemia Protocol Dextrose 1,000 mls @ 100 mls/hr 12/06/20 23:25 Dextrose 5% 1,000 Ml IVPB PRN PRN Hypoglycemia Protocol Cefazolin Sodium 1 gm in 50 mls @ 100 mls/hr 12/07/20 22:00 12/08/20 06:16 Ancef 1 Gm/D5w 50 Ml Pm IVPB 12/08/20 14:29 Infused Q8HR [facility] Infusion Insulin Aspart 2 - 5 units 12/07/20 08:00 12/08/20 10:54 Insulin Aspart (*Bkc) 100 Units/Ml SUB-Q Not Given TIDWM [facility] Protocol Lisinopril 2.5 mg 12/07/20 09:00 12/08/20 10:49 Lisinopril 2.5 Mg Tablet PO 2.5 mg DAILY MAMADOU Administration Magnesium Hydroxide 30 ml 12/07/20 16:44 Magnesium Hydroxide Susp 30 Ml
[2020-12-08 12:27] LABS: Sodium 121 mmol/L (137-145)
[2020-12-08 17:45] LABS: Glucose Point of Care 196 (65-105)
[2020-12-08] MEDS: ASPIRIN 81 MG ENTERIC TABLET PO (18:03)
[2020-12-08] MEDS: SODIUM CHLORIDE 1 GM TABLET PO (18:03)
[2020-12-08 21:01] LABS: Glucose Point of Care 240 (65-105)
[2020-12-08] MEDS: ACETAMINOPHEN 325 MG TABLET 650 MG PO (22:03)
[2020-12-09 00:14] VITALS: BP 113/42; PULSE 86; RESP 18; TEMP 37.6; O2SAT 95
[2020-12-09 06:07] LABS: Hematocrit 29.9 % (37.0-47.0); Hemoglobin 9.9 g/dL (12.0-15.0); Mean Corpuscular HGB Conc 33.1 g/dl (32-36); Mean Corpuscular Volume 84.5 fl (80-100); Mean Platelet Volume 9.6 fl (7.4-10.4); Platelet Count Result 261 k/mm3 (150-375); Red Blood Count 3.54 M/mm3 (4.2-5.4); Red Cell Distribution Width 13.8 % (11.5-14.5); White Blood Count 15.3 K/mm3 (4.5-10.0)
[2020-12-09 06:22] LABS: Anion Gap 4 mmol/L (8-16); Blood Urea Nitrogen 9 mg/dL (7-17); Calcium 8.6 mg/dL (8.4-10.2); Carbon Dioxide 27 mmol/L (22-30); Chloride 97 mmol/L (98-107); Estimated CRCL calculation 43 ml/min; Estimated Glomerular Filt Rate > 60; Glucose 150 mg/dL (65-105); Sodium 128 mmol/L (137-145)
[2020-12-09 08:12] LABS: Glucose Point of Care 154 (65-105)
[2020-12-09] MEDS: THERAPEUTIC MULTIVITAMINS/MINERALS TAB (*BKC) 1 TABLET PO (09:18)
[2020-12-09] MEDS: lisinopriL 2.5 MG TABLET PO (09:18)
[2020-12-09] MEDS: DOCUSATE SODIUM 100 MG CAPSULE PO (09:18)
[2020-12-09] MEDS: ASPIRIN 81 MG ENTERIC TABLET PO (09:18)
[2020-12-09 10:00] VITALS: BP 117/72; PULSE 104; RESP 16; TEMP 37.4; O2SAT 96
[2020-12-09 11:48] LABS: Glucose Point of Care 199 (65-105)
--- NOTE | 2020-12-09 12:03 | PM.PNORT ---
Progress Note: A&P Assessment and Plan (1) Closed subcapital fracture of right femur: Code(s): S72.011A - Unspecified intracapsular fracture of right femur, initial encounter for closed fracture Status: Acute (2) Status post total hip replacement, right: Code(s): Z96.641 - Presence of right artificial hip joint Status: Acute Assessment and Plan: Doing well on postoperative day 2 Total hip arthroplasty right. She wishes to go home. This is reasonable. She has adequate arrangements at home and assistance. She is in good physical condition. Aware of low grade temp. No signs of infection. She is doing well with PT. DVT prophylaxis: ASA 81 mg BID for 2 weeks Pain medication: Percocet (sent to pharmacy) PT: WBAT with walker for 3 weeks. I had a lengthy discussion with the patient. Reviewed post operative expectations and exercises. Reviewed wound care postoperatively. Patient shows good understanding. Okay for discharge. She will call the office to make a 3 week appointment for follow up. Subjective Subjective Date/Time Seen: 12/09/20 12:03 Status post Total hip arthroplasty for femoral neck fracture. doing well postoperative day 2. Pain well controlled Mobilizing well with therapy Aware of low grade fevers. No signs of infection. Patient states she is feeling great. No numbness or tingling. No calf tenderness. No SOB or CP. Review of Systems Review of Systems: All systems reviewed & are unremarkable except as noted in HPI and below Exam Narrative: Exam Narrative: Pleasant thin 75 y/o female. Dressings dry and intact. Wound healing well without drainage No hematoma, no deformity No warmth or erythema Slight ecchymosis Calves nontender, neurovascular status intact, wiggles toes Distal pulses palpable. Objective Data Vital Signs Vital Signs: Vital Signs - 24 hr 12/08/20 14:00 12/08/20 18:00 12/08/20 20:49 Temperature 98.2 F 99.4 F 100.6 F H Pulse Rate 91 102 H 100 Respiratory Rate 14 14 18 Blood Pressure 123/51 L 112/66 120/48 L Pulse Oximetry 96 97 95 12/08/20 22:03 12/08/20 23:03 12/09/20 00:14 Temperature 100.6 F H 99.6 F 99.6 F Pulse Rate 86 Respiratory Rate 18 Blood Pressure 113/42 L Pulse Oximetry 95 12/09/20 10:00 Temperature 99.3 F Pulse Rate 104 H Respiratory Rate 16 Blood Pressure 117/72 Pulse Oximetry 96 Intake/Output Intake/Output: Intake & Output 12/06/20 12/07/20 12/08/20 12/09/20 23:59 23:59 23:59 23:59 Intake Total 6419 039 2856 390 Output Total 1790 875 800 Balance 1000 -1050 495 -410 Meds/Results Medications: Active Medications Generic Name Dose Route Start Last Admin Trade Name Freq PRN Reason Stop Dose Admin Acetaminophen 650 mg 12/08/20 21:16 12/08/20 22:03 Acetaminophen 325 Mg Tablet PO 650 mg Q6H PRN Administration Mild Pain (1-3) or Fever Hydrocodone Bitart/Acetaminophen 1 tab 12/06/20 19:20 12/07/20 06:40 Hydrocodone/Acetaminophen (*Crx) 5-325 Mg Tablet PO 1 tab Q4H PRN Administration Pain Rated 4-6 Aspirin 81 mg 12/08/20 17:00 12/09/20 09:18 Aspirin 81 Mg Enteric Tablet PO 81 mg BID MAMADOU Administration Dextrose 12.5 gm 12/06/20 23:25 Dextrose 50% 25 Gm/50 Ml Syringe IV PUSH PRN PRN Hypoglycemia Protocol Docusate Sodium 100 mg 12/07/20 17:00 12/09/20 09:18 Docusate Sodium 100 Mg Capsule PO 100 mg BID MAMADOU Administration Glucagon 1 mg 12/06/20 23:25 Glucagon For Inj 1 Mg Vial IM PRN PRN Hypoglycemia Protocol Glucose 15 gm 12/06/20 23:25 Glucose Oral Gel 15 Gm Of Glucse In 37.5 Gm Tube PO PRN PRN Hypoglycemia Protocol Dextrose 1,000 mls @ 100 mls/hr 12/06/20 23:25 Dextrose 5% 1,000 Ml IVPB PRN PRN Hypoglycemia Protocol Insulin Aspart 2 - 5 units 12/07/20 08:00 12/09/20 09:17 Insulin Aspart (*Bkc) 100 Units/Ml SUB-Q Not Given TIDWM [facility]
[2020-12-09 12:20] LABS: Sodium 128 mmol/L (137-145)
[2020-12-09 14:00] VITALS: BP 144/52; PULSE 103; RESP 16; TEMP 37.6; O2SAT 100
[2020-12-09 15:32] LABS: Add Urine Microscopic? YES; Appearance Urine Cloudy (Clear); Bacteria Urine Trace /hpf; Bilirubin Urine Negative (Negative); Blood Urine 1+ (Negative); Color Urine Yellow (Yellow); Glucose Urine UA 2+ mg/dL (Negative); Ketones Urine 1+ mg/dL (Negative); Leukocyte Esterase Ur Negative LEU/UL (Negative); Mucus Urine Rare /lpf; Nitrate Urine Negative (Negative); Protein Urine 2+ mg/dL (Negative); Specific Grav Ur 1.016 (1.001-1.035); Squamous Epithelial Cell Urine Rare /hpf (Few); Urobilinogen Urine Negative mg/dL (<2.0); WBC Urine 0-3 /hpf
--- NOTE | 2020-12-09 15:50 | PM.DS ---
DS: Admitting Diagnosis Admitting Diagnosis Admitting Diagnosis: Right hip fracture DS: Discharge Diagnosis Discharge Diagnosis (1) Closed subcapital fracture of right femur: Code(s): S72.011A - Unspecified intracapsular fracture of right femur, initial encounter for closed fracture Status: Acute Assessment and Plan: Secondary to mechanical fall. She is status post right total hip arthroplasty on 12/07/[address] Doyle. She tolerated the procedure well and her pain was controlled. Home health care was arranged to continue therapy. She will continue weight-bearing as tolerated with a walker with orthopedic surgery follow-up in 3 weeks. (2) Hyponatremia: Code(s): E87.1 - Hypo-osmolality and hyponatremia Status: Acute Assessment and Plan: Review of prior labs suggests chronic mild hyponatremia. Sodium levels decreased to 121 postoperatively. FENa 3.5. Urine electrolytes consistent with SIADH. Sodium levels improved at appropriate rate with fluid restriction and sodium chloride tabs. Discussed continuing approximately 1500 ml fluid restriction with repeat sodium levels on 12/10/20. (3) Type 2 diabetes mellitus without complication, without long-term current use of insulin: Code(s): E11.9 - Type 2 diabetes mellitus without complications Status: Acute Assessment and Plan: A1c is 7.7. Blood sugars monitored and were reasonably controlled. Continue home regimen (4) Essential hypertension: Code(s): I10 - Essential (primary) hypertension Status: Acute Assessment and Plan: Blood pressure reviewed and was well controlled. Continue low-dose lisinopril (5) Abnormal TSH: Code(s): R79.89 - Other specified abnormal findings of blood chemistry Status: Acute Assessment and Plan: TSH is low with normal T4 and T3. Recommend repeat reflex TSH in 4-6 weeks as an outpatient. Follow-up with PCP (6) Low grade fever: Code(s): R50.9 - Fever, unspecified Status: Acute Assessment and Plan: She developed fever with T-max 100.6? on postop day 1. Likely atelectasis. Continue incentive spirometry. She had no additional signs or symptoms to suggest acute infection. CXR and UA reviewed without concerns for infection. Blood cultures ordered and are pending; results will be monitored. Venous Doppler negative. DS: Summary Hospital Course Reason for hospitalization: Right hip fracture Hospital Course: Date of admission: 12/06/2020 Date of discharge: 12/09/2020 Rhonda Villalba is a 75-year-old female with a history of hypertension, hyperlipidemia, and type 2 diabetes mellitus who presented to the emergency department on 12/06/2020 with complaints of right hip pain after falling outside while gardening. Upon presentation to the emergency department her blood pressure was elevated with additional vital signs stable, H&H slightly decreased, sodium 129, additional electrolytes stable, CXR with no acute cardiopulmonary findings, hip/pelvis x-ray with acute right hip subcapital femoral neck fracture, and knee x-ray with small right knee joint effusion. She was admitted to the hospitalist service for further evaluation and management and was seen in consultation by Orthopedic surgery. Please see above for further details. She underwent surgical repair. She was feeling very well postoperatively and was eager for discharge. She did develop a very low-grade fever on pod 1 but remained asymptomatic. Discussed case with orthopedic provider and supervising physician. She will follow-up with orthopedic surgery in 3 weeks. She will obtain repeat labs tomorrow to monitor her sodium levels. She was determined to no longer require inpatient care and was felt to be stable for discharge. We discussed worrisome signs and symptoms for which to return and she was educated on her medications. She was discharged in hemodynamically stable condition o
[2020-12-10 04:52] LABS: Osmolality, Urine 279 mOsm/kg (50-1200)
== END 2020-12-09 16:49 | disposition home health service (06) | DRG 522 ==
LOC: ANHED 19:15 → ANH2MED 20:08
PROVIDERS: Orthopaedic Surgery; Physician Assistant; Admitting Provider Internal Medicine; Emergency Provider Nurse Practitioner; PCP Family Medicine; Visit Provider Internal Medicine
PROC: 0SR904A Replacement of Right Hip Joint with Ceramic on Polyethylene Synthetic Substitute, Uncemented, Open Approach (ICD-10-PCS; CPT 27130; principal; 2020-12-07 13:00)
DX: S72.011A Unspecified intracapsular fracture of right femur, initial encounter for closed fracture (principal); E87.1 Hypo-osmolality and hyponatremia; W19.XXXA Unspecified fall, initial encounter; E11.9 Type 2 diabetes mellitus without complications; I10 Essential (primary) hypertension; E78.5 Hyperlipidemia, unspecified
CPT/HCPCS: 36415; 71045; 71046; 73502; 73562; 80048; 80053; 81001; 82570; 82948; 83036; 83735; 83930; 83935; 84295; 84300; 84439; 84443; 84480; 85025; 85027; 85610; 85730; 86850; 86900; 86901; 87040; 93005; 93970; 96360; 97110; 97116; 97161; 97165; 97530; 97535; 99285; A9270; C1776; G0378; J0171; J0690; J1100; J1885; J2270; J2405; J2704; J2795; J3010; J7030; J7120

== ENCOUNTER 2020-12-10 12:31 | Outpatient (NON) | payer BC, SELFPAY ==
[2020-12-10 13:00] LABS: Sodium 128 mmol/L (137-145)
== END 2020-12-10 12:32 | disposition home or self-care (01) ==
PROVIDERS: PCP Family Medicine; Visit Provider Family Medicine
DX: S72.011A Unspecified intracapsular fracture of right femur, initial encounter for closed fracture (principal); E11.9 Type 2 diabetes mellitus without complications; I10 Essential (primary) hypertension; E87.1 Hypo-osmolality and hyponatremia
CPT/HCPCS: 84295